=== PATIENT | male | born 1955 | race Caucasian/White ===

== ENCOUNTER 2019-05-04 18:51 | Inpatient (IN) | payer MEDICARE, OTHER ==
[~2019-05-04] VITALS: Ht 175.3 cm; Wt 105.2 kg
[2019-05-04] MEDS ORDERED: LIPITOR10 MG PO (19:39)
[2019-05-04] MEDS ORDERED: LISINOPRIL20 MG PO (19:40)
[2019-05-04] MEDS ORDERED: ZESTORETIC 20-1 EAC1 PO (22:52)
--- NOTE | 2019-05-05 | NUR ---
BP IS ELEVATED AT THIS TIME. PT IS ALSO VERY ANXIOUS AT THIS TIME WHICH ALSO SEEMS TO BE BASELINE FOR HIM. HEAD IS RED AND FLUSHED. PT DENIES HEADACHE. LEFT HAND IS NUMB AND BURNNING. DIGITS ON LEFT HAND ARE BLUE IN COLOR AND COOL TO TOUCH.
--- NOTE | 2019-05-05 00:24 | NUR ---
NITRO GLYCERIN PAST 1 INCH WAS APPLIED ON INDEX AND PINKY FINGER ON LEFT HAND. LAB ON ITS WAY TO DRAW PPT.
--- NOTE | 2019-05-05 01:20 | NUR ---
APPT AT 0030 WAS 41.6. PER MD PRESTON INSTRUCTION, HEPARIN DRIP IS TO BE INCREASED TO 1000UNITS/KG/HR. THIS IS IN HARMONY WITH TITRATION PROTOCOL IN EMAR.
--- NOTE | 2019-05-05 01:54 | NUR ---
RESPONDED TO PT CALL LIGHT. REPORTS INCREASED PAIN AND NUMBNESS IN LEFT FINGERS AND HAND. PRN PAIN MEDICATION GIVEN. PT FACE REMAINS FLUSHED AND SLIGHTLY DIAPHORETIC. ORAL TEMPERATURE OF 99.0. CALL LIGHT WITHN REACH. WILL CONTINUE TO MONITOR
--- NOTE | 2019-05-05 02:08 | NUR ---
PT AT THIS TIME IS COMPLAINING OF INCREASED NUMBNESS IN 5TH AND SECOND DIGIT ON LEFT HAND. ULNAR AND RADIAL PULSES WERE NOTED AND ARE BOTH BOUNDING. WILL CALL MD PRESTON ABOUT NEW FINDINGS.
--- NOTE | 2019-05-05 02:52 | NUR ---
MD PRESTON WAS CALLED DUE TO UPDATE ABOUT PT CONDITION. SINCE LEFT INDEX FINGER IS TURNING MORE CYANOTIC LOOKING AND PT HAS NO FEELING IN IT AT ALL. ORDER WAS GIVEN TO INCREASE HEPARIN DRIP TO 1200 UNITS/KG/HR. WILL CONTINUE TO MONITOR. SUGGESTION WAS MADE TO SHIP PT OUT FOR VASCULAR SX BUT THAT IDEA WAS DISMISSED.
--- NOTE | 2019-05-05 04:30 | NUR ---
AT T HIS TIME INDEX FINGER ON LEFT HAND LOOKS LESS CYANOTIC. PT HOWEVER STILL DOES NOT HAVE ANY FEELING PRESENT. THE SAME IS TRUE FOR LEFT FIFTH PHALANGES. LEFT ULNAR AND RADIAL PULSES ARE PRESENT. PT DENIES SOB, PT IS AAOX4, PEDIS PULSES ARE +2. BP IS STILL ELEVATED SYSTOLICALLY >150. HR IS WDL[place] [address] UNITS/KG/HR. WILL TITRATE NEEDED.
--- NOTE | 2019-05-05 06:19 | NUR ---
APTT AT 0615 WAS 47.2. HEPARIN DRIP WAS INCREASED TO 1400 UNITS/KG/HR. WILL CALL MOHAN WITH UPDATE. FOLLOWED EMAR PROTOCOL SINCE MD DAHL DID NOT EXACTLY OUTLINE NEEDED RATE CHANGES.
--- NOTE | 2019-05-05 06:25 | NUR ---
CALLED MD PRESTON FOR UPDATE. HERPARIN DRIP WAS REDUCED BACK TO 1200 UNITS. IN ADDITION AN ORDER WAS RECEIVED FOR A BOLUS HEPARIN 5000UNITS ONCE.
--- NOTE | 2019-05-05 07:30 | NUR ---
PATIENT SHIFT REPORT RECEIVED FROM RISK MODELER RN. PATIENT RESTING IN BED WITH HIS GIRLFRIEND AT THE BEDSIDE. PER REPORT PATIENT HAS NITRO PASTE TO PINKY AND 2ND DIGIT WHICH HAS IMPROVED COLOR AND CAP REFILL. COLOR IS MORE PINK ON PINKY. THE 2ND DIGIT REMAINS COLD TO THE TOUCH, NO SENSATION, AND VERY SLUGGISH CAP REFIL. PATIENTS HAND APPEARS MOTTLED ON PALM, BUT MORE PINK THAN WHEN ADMITTED PER REPORT.
--- NOTE | 2019-05-05 08:30 | NUR ---
PATIENT SHIFT ASSESSMENT COMPLETED. PATIENTS LEFT HAND EXAMINED. GOOD ULNAR AND RADIAL PULSES PRESENT. PATIENT THUMB IS WARM AND <3 SECONDS CAP REFILL, 2ND DIGIT IS COLD TO THE TOUCH, NO SENSATION, MOTTLED/WHITE IN COLOR, NO COLOR CHANGE FOR CAP REFILL AT THE TIP OF THE FINGER, 8 SECONDS CAP REFILL USP DOWN THE FINGER, 3RD/4TH/5TH DIGIT COOL, CAP REFILL 5 SECONDS, NUMBNESS/TINGLING NOTED, AND PURPLE AT FINGERTIPS. HAND IS <3 SECONDS CAP REFILL. NO IVS/BLOOD PRESSURES ON LEFT EXTREMITY.
--- NOTE | 2019-05-05 08:32 | NUR ---
IN TO COMPLETE PTS INITIAL CASE MANAGEMENT ASSESSMENT. PT REPORTS THAT HE CURRENTLY LIVES IN A [place]. REPORTS HE HAS NO ISSUES THERE AND HE IS SAFE THERE.
--- NOTE | 2019-05-05 09:00 | NUR ---
NEURO ASSESSMENT COMPLETED. NO NEURO DEFICITS NOTED. FACIAL EXPRESSIONS EQUAL, ARM STRENGTH EQUAL BILATERALLY, LEFT HAND ROLL CUTTER IS SLIGHTLY LESS, PATIENT STATES "IT HURTS MY FINGERS WHEN I SQUEEZE, I COULD SQUEEZE HARDER THOUGH", NO PRONATOR DRIFT PRESENT, AND BLE EQUAL. BREATH SOUNDS CLEAR. BOWEL TONES ACTIVE. BREAKFAST ODERED PER MD TO PLACE PATIENT ON REGULAR DIET. NO OTHER NEEDS AT THIS TIME. WILL CONTINUE TO CLOSELY MONITOR.
--- NOTE | 2019-05-05 09:01 | NUR ---
SPOKE WITH JUANITO IN IMAGING AND CT'S CANCELLED. SPOKE WITH RADIOLOGIST AND NEW CRITICAL FINDINGS NOTED ON PREVIOUS CT SCAN. NO NEW ORDERS AT THIS TIME. WILL AWAIT FURTHER ORDERS AND TREATMENTS.
[2019-05-05] MEDS ORDERED: LATANOPROST2.5 ML OU (09:34)
--- NOTE | 2019-05-05 09:34 | NUR ---
MED REC COMPLETE
--- NOTE | 2019-05-05 11:00 | NUR ---
PATIENT SITTING ON EDGE OF BED WITH NO ISSUES. PATIENT IS VISITING WITH GIRLFRIEND. PATIENT DENIES ANY NEEDS AT THIS TIME WILL CONTINUE TO CLOSELY MONITOR.
--- NOTE | 2019-05-05 12:15 | NUR ---
PATIENT RESTING IN BED, TYLENOL GIVEN FOR PRN PAIN. ONCOLOGY RADIATION PHYSICIAN COMPLETED ECHO. NEURO EXAM COMPLETED AND REMAINS UNCHANGED FROM PREVIOUS ASSESSMENT. PAINT STOCKMAN IN TO DRAW APTT WILL FOLLOW-UP REGARDING RESULTS. LUNCH ORDERED. WILL CONTINUE TO CLOSELY MONITOR.
--- NOTE | 2019-05-05 12:16 | NUR ---
patient complaining of throbbing in his index finger. patient requesting tylenol. gve prn tylenol for pain. patient denies any other needs at this time. will continue to closely monitor.
--- NOTE | 2019-05-05 12:58 | NUR ---
ATTEMPTED TO CALL DR PRESTON WITH PTT RESULTS. MESSAGE LEFT.
--- NOTE | 2019-05-05 14:30 | NUR ---
UPDATED MD REGARDING PATIENTS BLOOD PRESSURES AND PATIENT REQUESTING HIS HOME EYE DROPS FOR GLACOMA. MD OKAYED TO START HOME DOSE GLACOMA EYE DROPS AND WILL BE IN TO SEE PATIENT. UPDATED THAT APTT 99 AND NO NEW CHANGES IN MEDICATION. WILL CONTINUE TO CLOSELY MONITOR.
--- NOTE | 2019-05-05 14:30 | NUR ---
PATIENT NITRO PASTE CHANGED ON HIS FINGERS. CALLED AND REQUESTED A REPEAT OF THE ECHO WITH DEFINITIVE CONTRAST. CALLED IMAGING STAFF AND STAFF HAVE ALREADY LEFT FOR THE DAY. UPDATED MD AND SMALL BRAKE FORM OPERATOR. MD REQUESTED US TO CALL STAFF AND SEE IF THEY CAN COME BACK IN TO COMPLETE IMAGING.SMALL BRAKE FORM OPERATOR CALLED STAFF AND LEFT A VOICEMAIL. MD WILL BE IN HERE SHORTLY TO SEE PATIENT AND UPDATE HIM.
--- NOTE | 2019-05-05 14:49 | EKG ---
[facility] [address] [facility] [place], [place] [address] Signed Normal sinus rhythm Normal ECG No previous ECGs available Confirmed by RADHA BRUNO DO ([id number]) on 05/05/2019 2:49:07 PM Electronically Signed By: RADHA BRUNO DO 05/05/19 1449 PATIENT NAME: BARAHONA LYDIA CERVANTES Electrocardiogram DATE OF : 55 PHYSICIAN: RADHA BRUNO DO REPORT #: [id number] REPORT IS CONFIDENTIAL AND NOT TO BE RELEASED WITHOUT AUTHORIZATION
--- NOTE | 2019-05-05 15:54 | NUR ---
STEEL ROD BUSTER IN AND COMPLETED IMAGING WITH NO ISSUES. PATIENT IS RESTING IN BED AT THIS TIME AND DINNER IS ORDERED. PATIENTS GIRLGRIEND REMAINS AT THE BEDSIDE. WILL CONTINUE TO CLOSELY MONITOR.
--- NOTE | 2019-05-05 17:03 | NUR ---
PATIENTS LEFT HAND EXAMINED WHILE CHANGING NITRO PASTE DRESSING. GOOD ULNAR AND RADIAL PULSES PRESENT. PATIENT THUMB IS WARM AND <3 SECONDS CAP REFILL, 2ND DIGIT IS COLD TO THE TOUCH, NO SENSATION, MOTTLED/WHITE IN COLOR, 10 SECONDS OF CAP REFILL NOTED IN TIP OF FINGER, 8 SECONDS CAP REFILL LONGTERM DOWN THE FINGER, 3RD/4TH/5TH DIGIT COOL, CAP REFILL 5 SECONDS, NUMBNESS/TINGLING NOTED, AND PURPLE AT FINGERTIPS. HAND IS <3 SECONDS CAP REFILL. NO IVS/BLOOD PRESSURES ON LEFT EXTREMITY. PATIENT HAD THROBBING AROUND NOON IN 2ND DIGIT, BUT RESOLVED WITH PRN TYLENOL. WILL CONTINUE TO CLOSELY MONITOR. PLACED NEW NITRO PASTE ON FINGERS PER ORDERS.
--- NOTE | 2019-05-05 18:45 | NUR ---
UPDATED MD THAT APTT IS 60.3. PER MD INCREASE HEPARIN GTT TO 1300UNITS/HR. CHANGED GTT AND UPDATED BALLING MACHINE OPERATOR TO CHECK APTT AT MIDNIGHT. WILL CONTINUE TO CLOSELY MONITOR.
--- NOTE | 2019-05-05 18:49 | NUR ---
MD PRESTON IN TO SE PATIENT. MD CONSULTED WITH VASCULAR MD AND UPDATED PATIENT AND FAMILY. PLAN OF CARE TO START PATIENT ON WARFARIN AND CONTINUE TO MONITOR LEFT HAND/FINGERS. LEFT INDEX FINGER APPEARS THE WORSE OF THE FIVE. PATIENT UNDERSTANDS THAT HE MAY LOOSE A DIGIT. CONTINUED NEURO ASSEMENTS REMAIN NEGATIVE THROUGHOUT THE DAY. PATIENT IS AGREEABLE TO PLAN OF CARE. WILL CONTINUE TO CLOSELY MONITOR.
--- NOTE | 2019-05-05 19:06 | HP ---
[facility] [address], [place] [address] Signed ADMISSION DATE: 05/04/2019 REASON FOR ADMISSION: Ischemia of left index and small finger, possible small vessel occlusion, etiology uncertain, possibly embolic. HISTORY OF PRESENT ILLNESS: This 63-year-old white man is accompanied by his significant other girlfriend with complaints of severe left index finger pain and left small finger pain as well as color changes to them both. His symptoms began today and have never been present in the past. He is not known to have Raynaud phenomenon in the past. His evaluation by Dr. Oro showed ischemic changes of the left index finger with a whitish color with mottling as well as some cyanotic changes of the distal segment of the finger with similar findings on the left small finger. I was called and recommended heparinization as well as CT angiogram of the upper extremity to assess for an aneurysmal abnormality to account for embolic phenomenon. The patient is not known to have atrial fibrillation in the past and on EKG has no atrial fibrillation currently. The patient was heparinized with 4000 units of intravenous heparin and began on an 800 unit/hour drip. A CT angiogram was performed, which shows digital artery occlusion on the left index finger and at least one digital artery on the left small finger that may be occluded as well. My review and review of the radiologist shows no sign of vascular abnormality more proximal to that. Unfortunately, the subclavian artery and arch vessels were not visualized on the study. The patient has an episode of having fallen out of his trailer a few weeks ago with pain to his left elbow, but without fracture or dislocation or other problem. Notably, there was no sign of abnormality on the angiogram related to the left elbow area. 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 Electronically Signed By: ALVERTO PRESTON MD 05/05/19 1906 PATIENT NAME: LYDIA BARAHONA SR HISTORY AND PHYSICAL DATE OF : 55 REPORT #: [id number] PHYSICIAN: ALVERTO PRESTON MD PCP: NO PRIMARY CARE PHYSICIAN REPORT IS CONFIDENTIAL AND NOT TO BE RELEASED WITHOUT AUTHORIZATION [facility] [address] [place] [id number] Signed MEDICATIONS: The patient's medications include atorvastatin as well as lisinopril hydrochlorothiazide. The patient has taken his medicines. ALLERGIES: The patient has no known drug allergies. 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 He lives on a pension from that institution as well social security. He travels in his trailer from this place to [facility] his home where his post office box is. REVIEW OF SYSTEMS: He denies any chest pain or shortness of breath. He has had no palpitations. He has no left arm or forearm pain. Pain is restricted to the left index finger and left small finger. He denies any symptoms suggestive of claudication. PHYSICAL EXAMINATION: GENERAL: This is a somewhat obese white man, who does not look toxic, but is somewhat uncomfortable. NECK: His trachea is midline. I detect no carotid bruit. CHEST: Clear. HEART: Regular. I detect no murmur. ABDOMEN: Obese, but soft. There is no palpable aneurysm. MUSCULOSKELETAL: Femoral pulses are 3/3 bilaterally. Upper extremity pulse exam shows brachial pulses 3/3, radial pulses 3/3 bilaterally. Ulnar pulses not detectable by palpation on either side. Dorsalis pedis and posterior pulses are 3/3 bilaterally. SKIN: Examination of the skin itself shows some mottling of the palmar area and clearly ischemic changes of the left index finger and left small finger. There is minimal cyanosis of the distal interphalangeal segments in the index and left small finger. The ring and middle fingers have mild cyanotic changes, but not much. Sensory exam shows "numbness" according to patient of the index and small finger. Sensation is intact to the thumb, middle and ring finger on the left side. The right hand is warm and pink without sign of any abnormality. ASSESSMENT: The patient clearly has ischemic changes to the left index finger and left small finger and angiographic evidence of occlusion of those arteries. The palmar arch and other vessels appear to be patent based on the CT angiogram that has been performed. Most likely, this represents an embolic phenomenon possible etiologic sites would include the subclavian artery with aneurysmal change or the heart itself with paroxysmal atrial fibrillation (less likely). Electronically Signed By: ALVERTO PRESTON MD 05/05/19 1906 PATIENT NAME: LYDIA BARAHONA SR HISTORY AND PHYSICAL DATE OF : 55 REPORT #: [id number] PHYSICIAN: ALVERTO PRESTON MD PCP: NO PRIMARY CARE PHYSICIAN REPORT IS CONFIDENTIAL AND NOT TO BE RELEASED WITHOUT AUTHORIZATION [address] [address] Signed I conferred with a vascular surgeon consulting services manager, Dr. Jefferson, at [facility], who kindly affirmed my plan of systemic heparinization, observation and a plan for visualization of the left subclavian artery and more proximal vessels. Given the dye load he has sustained for his CT angiogram this evening, I think it is best to not repeat the study until tomorrow morning after more hydration. Helpful suggestions have included possible application of topical Nitro paste to the affected fingers, though it is less likely to truly allow for reestablishment of flow of the major arteries, but any collateral flow might be improved. Pain control will be important and of course hydration. The patient does not smoke nor does he have other risk factors for this problem. The possibility of a collagen vascular disease (scleroderma, etc.) is considered and appropriate screening tests would be helpful to obtain as well. There is considered no specific role for thrombolytic therapy acutely at this time, only systemic heparinization to prevent propagation of clot and worsening of the situation. I discussed with the patient and his that loss of the digits is a possibility unfortunately, as his presentation is relatively late considering the clinical findings at hand with and without a mechanical means to provide embolectomy of the arteries so small. We are hopeful and optimistic that it will not come to that. It is notable that the problem is on his nondominant hand. MD ROBSON Segovia/JULES /[id number] cc: Nash Ferrer MD Copies: FACUNDO ORO MD Electronically Signed By: ALVERTO PRESTON MD 05/05/19 1906 PATIENT NAME: LYDIA BARAHONA SR HISTORY AND PHYSICAL DATE OF : 55 REPORT #: [id number] PHYSICIAN: ALVERTO PRESTON MD PCP: NO PRIMARY CARE PHYSICIAN REPORT IS CONFIDENTIAL AND NOT TO BE RELEASED WITHOUT AUTHORIZATION [address] [address] Signed ~ Electronically Signed By: ALVERTO PRESTON MD 05/05/19 1906 PATIENT NAME: LYDIA BARAHONA SR HISTORY AND PHYSICAL DATE OF : 55 REPORT #: [id number] PHYSICIAN: ALVERTO PRESTON MD PCP: NO PRIMARY CARE PHYSICIAN REPORT IS CONFIDENTIAL AND NOT TO BE RELEASED WITHOUT AUTHORIZATION
--- NOTE | 2019-05-05 20:00 | NUR ---
RECEIVED REPROT AT 1900, PT WAS IN ROOM WITH FAMILY AT BEDSIDE. PT OVERALL SEEMS IN GOOD SPIRITS AND PAIN AT THIS TIME IS WELL CONTROLLED. HIS LEFT PALM IS PERFUSING WELL. HIS LEFT INDEX FINGER IS COMPLETELY NUMB ON THE TOP HALF, COOL TO TOUCH WITH A CAP REFILL OF ABOUT 10 SEC. UPPER HALF OF FINGER IS CYANOTIC IN APPEARANCE. LEFT MIDDLE FINGER IS WDL. LEFT RING FINGER IS WDL. LEFT PINKY FINGER IS WDL WITH CAP REFILL, PT HAS VERY MINIMAL NUMBNESS PRESENT AT THIS TIME. NO CYANOSIS NOTED AT THIS TIME. LEFT ULNAR/RADIAL PULSES ARE STILL BOUNDING. PT DENIED ANY OTHER NUMBNESS/TINGLING IN ANY OTHER AREAS. PT IS AAOX4. WILL CONTINUE TO MONITOR.
--- NOTE | 2019-05-05 21:45 | NUR ---
PT AT THIS TIME HAS PAIN 11/23. 1 TAB PERCOCET WAS GIVEN. NO CHANGES NOTED IN LEFT HAND SINCE LAST ASSESSMENT. V/S ARE WDL. NO NEW CONCERNS NOTED.
--- NOTE | 2019-05-05 22:34 | NUR ---
V/S ARE WDL. PT IS SLEEPING AT THIS TIME.
--- NOTE | 2019-05-06 00:15 | NUR ---
V/S ARE WDL, PAIN IS WELL CONTROLLED AT THIS TIME. THE ONLY FINGER ON HIS LEFT HAND BEING A PROBLEM IS HIS INDEX FINGER. THE CAP REFILL AT THIS TIME IS ABOUT 10 SEC +. PT HAS STILL HAS NO FEELING PRESENT IN UPPER HALF OF FINGER. APPEARANCE IS UNCHANGED SINCE START OF SHIFT. WILL CONTINUE TO MONITOR. SECOND ASSESSMENT OTHERWISE UNCHANGED OVERALL.
--- NOTE | 2019-05-06 01:07 | NUR ---
MD PRESTON WAS CALLED WITH 0000 RESULTS OF PTT (53.6). DRIP TO BE INCREASED TO 1500 UNITS AT THIS TIME. WILL REASSESS WITH 0600 LABS.
--- NOTE | 2019-05-06 02:23 | NUR ---
PT AT THIS TIME DENIES PAIN. PT VOIDED AND NOW IS BACK IN BED. NO NEW CONCENS NOTED.
--- NOTE | 2019-05-06 04:15 | NUR ---
URINE OUTPUT THIS SHIFT HAS BEEN MUCH BETTER THAN THE PREVIOUS [place]. LEFT INDEX FINGER IS LESS CYANOTIC AND PT HAS SOME FEELING BACK IN IT WITH THE EXCEPTION OF THE TIP OF THE INDEX FINGER. CAP REFILL IS STILL AROUND 10 SECONDS THOUGH. PT ALSO HAS MORE MOVEMENT IN HIS LEFT INDEX FINGER WELL. PAIN AT THIS TIME IS NO ISSUE. LEFT RADIAL, ULNAR AND BRACHIAL PULSES ARE WDL AT THIS TIME. PT HAS NO OTHER SITES OF NUMBNESS/TINGLING ANYWHERE ELSE AT THIS TIME.
--- NOTE | 2019-05-06 06:21 | NUR ---
PT HAD AN UNEVENFUL NIGHT. AT START OF SHIFT LEFT HAND INDEX FINGER, THE UPPER HALF HAD NO FEELING AT ALL AND WAS VERY CYANOTIC WITH A CAP REFILL OF ABOUT >5 SECONDS OR MORE. OTHER DIGITS WERE OVERALL WDL. THE SECOND ASSESSMENT WAS UNCHANGED FROM THE FIRST. WITH THE THIRD ASSESSMENT, THE LEFT INDEX FINGER REGAINED SOME FEELING STATED BY PT AND THE CYANOSIS DID SUBSIDE SOME. THE UPPER HALF OF HIS INDEX FINGER WAS PALE AND COOL AT THAT TIME. PT ALSO REGAINED MORE MOVEMENT IN THAT FINGER WELL. HEPARIN DRIP WAS INCREASED TO 1500 UNITS AFTER MIDNIGHT DUE TO A APTT OF ONLY 53.6 ORDERED BY MD PRESTON VIA TELEPHONE. PT HAS HAD ELEVATED BP'S MOST OF THIS SHIFT. OTHER V/S WERE WDL. ULNAR/RADIAL/BRACHIAL AND PEDIS PULSES ARE ALL PRESENT +2. PAIN WAS WELL CONTROLLE WITH PRN PERCOCET. URINE OUTPUT WAS ADEQUATE FOR THIS SHIFT. ALL LOBES ARE CLEAR, PT AAOX4.
--- NOTE | 2019-05-06 08:01 | NUR ---
REPORT RECEIVED FROM PV DESIGN AND INSTALLATION TECHNICIAN RN. PT ALERT AND ORIENTED SITTING ON THE SIDE OF THE BED. NITRO REMOVED FROM FINGERS AND CAPILLARY REFILL ASSESED. 0600 APTT STILL PENDING, RE-ORDERED THERE WAS SOME DISCREPANCY WITH LAB. AWAITING RESULTS.
--- NOTE | 2019-05-06 08:39 | NUR ---
DR. PRESTON CALLED TO UPDATE ON aPTT LEVEL WHICH IS 72.7. PATIENT'S HEPARIN GTT TO REMAIN AT 1500 UNITS/HR AND NEXT DRAW WILL BE AT NOON. ORDER REC'D FOR MILK OF MAG FOR CONSTIPATION. NO FURTHER ORDERS. CONTINUE TO MONITOR.
--- NOTE | 2019-05-06 09:24 | NUR ---
PT C/O NAUSEA, BELIEVES IT IS DUE TO THE "ALL THE MEDICATIONS" HE'S BEEN TAKING. PRN NAUSEA MED OFFERED AND PT REFUSED. PT HOPING THE MILK OF MAG WILL HELP HIM HAVE A BM AND THEN HE'LL FEEL BETTER. PT DENIES PAIN IN LEFT HAND/FINGERS, STATES THEY ARE STILL KIND OF NUMB AND TINGLY. INDEX AND SMALLEST FINGER CYANOTIC AT THE TIPS, CAP REFIL >3 SECONDS. HEPARIN INFUSING WITHOUT DIFFICULTY. PT DENIES OTHER NEEDS AT THIS TIME.
--- NOTE | 2019-05-06 10:44 | NUR ---
PRN IV TYLENOL GIVEN FOR C/O HEADACHE AND THROBBING IN PT'S LEFT INDEX FINGER. SON IN ROOM TO VISIT.
--- NOTE | 2019-05-06 11:44 | NUR ---
PT UP TO BR WITH SBA TO VOID 300 ML CLEAR YELLOW URINE. PT SITTING ON THE SIDE OF THE BED VISITING WITH SON. PT STATES PAIN/THROBBING IN THE INDEX FINGER IS IMPROVED AFTER IV TYLENOL. HEADACHE IS GONE. NO C/O NAUSEA. CALL LIGHT IN REACH.
--- NOTE | 2019-05-06 12:38 | NUR ---
NOON APTT REPORTED TO BE 80.2, HEPARIN DRIP CONTIUED AT 1,500 UNITS PER HOUR.
--- NOTE | 2019-05-06 13:00 | NUR ---
PT'S INDEX AND SMALLEST FINGER RE-WRAPPED WITH NITRO PASTE AND GAUZE. CAP REFILL ON TIP OF INDEX FINGER ABOUT 15 SEC, FINGER TIP CYANOTIC. CAP REFILL NEAR SECOND JOINT ABOUT 5 SEC WITH PINK COLOR. THUMB, SECOND, AND THIRD FINGERS CYANOTIC ON THE PADS, CAP REFILL BRISK. SMALLEST FINGER CYANOTIC, CAP REFILL ABOUT 3 SECONDS. PT STATES HE HAS FEELING IN ALL FINGERS. SOME MOTTLING NOTED IN THE PALM AND THUMB. PT DENIES PAIN.
--- NOTE | 2019-05-06 13:45 | NUR ---
PT UP TO BR TO DO OWN SPONGE BATH, MINIMAL ASSISTANCE NEEDED. LOIS WELL. LINENS CHANGED.
--- NOTE | 2019-05-06 15:26 | NUR ---
PT UP TO BR WITH SBA TO VOID 300 ML YELLOW URINE. LOIS WELL. PT DENIES PAIN AT THIS TIME. PT BACK TO BED TO REST FOR A WHILE. CALL LIGHT IN REACH.
--- NOTE | 2019-05-06 18:18 | NUR ---
PT FINISHED DINNER, RESTING IN BED WATCHING TV. VS COMPLETE. PT DENIES PAIN IN LEFT HAND/FINGERS. NITRO WRAP REMAINS IN PLACE ON INDEX AND SMALL FINGER. HEPARIN INFUSING AT 1,500 UNITS/HOUR WITHOUT DIFFICULTY. NO OTHER REQUESTS AT THIS TIME.
--- NOTE | 2019-05-06 18:48 | NUR ---
PRN IV TYLENOL GIVEN FOR C/O 5/10 PAIN IN THE LEFT INDEX AND SMALLEST FINGER. PT STATES THE FINGERS ACHE AND TINGLE. PT SITTING ON OG SIDE OF THE BED AND SAYS THAT HELPS WITH THE PAIN IN HIS HAND. WILL TX TO MEDICAL FLOOR NOW.
--- NOTE | 2019-05-06 19:42 | NUR ---
PT CALLED TO USE RESTROOM, SBA TO RESTROOM AND BACK TO BED. HE DENIES FURTHER NEEDS AND CALL LIGHT IS WITHIN REACH.
--- NOTE | 2019-05-06 20:45 | NUR ---
PT WALKING IN ROOM EARLIER, NO C/O PAIN. L ARM RESTRICTED, L 2ND AND 5TH DIGITS DRESSING DONE. POOR CAPILLARY REFILL, NUMBESS AND TINGLING, WHITE COLORED, COOL TO TOUCH, SLIGHTLY LESS WARM THAN PROXIMAL PHALANGEAL SPACE UP 1ST DISTAL PHALANGEAL AREA. ABLE TO BEND FINGERS. FAINT, PALPABLE PULSES COOPERATIVE WITH ASSESSMENTS. IV HEPARIN INFUSING 1500UNITS. CALL LIGHT AT BEDSIDE, TOLERATING DIET WELL
--- NOTE | 2019-05-07 01:00 | NUR ---
RESTING, NO DISTRESS, ON ROOM AIR, L ARM ELEVATRED WITH PILLOWS, DRESSING IN PLACE 2ND AND 5TH DIGIT. CALL LIGHT AT BEDSIDE
--- NOTE | 2019-05-07 03:07 | NUR ---
C/o h/a, medicated with TYlenol 650mg po. L 5th digit pink, lukewarm to touch, 6 sec cap refill 1+ pitting. pink nail bed. Tingling sensation both and numbness over 2nd digit. 2nd digit digit capillary refill over 10 seconds tip still white and cyanotic/bluish fingernail bed. cold to touch from mid phalange to tip. Nitro paste applied to both. Cooperative. able to bend both fingers. elevagted with pillows, restricted L arm. PTT 91.4, Heparin drip w/o changes. Up to br w minimum of help, voided, back to bed
--- NOTE | 2019-05-07 04:20 | NUR ---
PT CALLED COMPLAINING OF SEVERE PAIN IN HIS FINGER. HE RATED THE PAIN AT "100" AND WAS ROCKING AND SQUIRMING. REMOVED THE BANDAGE TO ASSESS FINGER AND REAPPLY DRESSING. BY THE TIME THE IV MORPHIN WAS ADMINISTERED HE REPORTED PAIN AT AN 8/10. HE IS NOW COMFORTABLE AND DENIES FURTHER NEEDS CALL LIGHT IS WITHIN REACH.
--- NOTE | 2019-05-07 06:56 | NUR ---
PT REPORTS NAUSEA. ADMINISTERED ZOFRAN AND HE DENIES FURTHER NEEDS. CALL LIGHT IS WITHIN REACH.
--- NOTE | 2019-05-07 07:08 | NUR ---
PT SITTING UP IN CHAIR, ALERT AND ORIENTED. PT STATES HE STILL HAS A HEADACHE FROM THE NITRO PASTE BUT THAT IT IS TOLERABLE. CALL LIGHT AND H2O IN REACH. NO OTHER NEEDS OR CONERNS VOICED. LIGHTS DIMMED. BEDSIDE REPORT RECEIVED FROM PAUL SUAREZ.
--- NOTE | 2019-05-07 08:07 | NUR ---
PATIENT SITTING UP IN CHAIR. IN ROOM. PATIENT'S BREAKFAST ORDERED. CALL LIGHT WITHIN REACH. NO OTHER NEEDS AT THIS TIME
--- NOTE | 2019-05-07 08:22 | NUR ---
PT SITTING UP IN CHAIR, ALERT AND ORIETNED CONVERSING WITH FAMILY AT BEDSIDE. ASSESSMENT COMPLETED. CALL LIGHT AND H2O IN REACH. AM MEDS ADMINISTERED. NEW BAG OF HEPARIN HUNG AND CONTINUES TO INFUSE AT PRESCRIBED RATE. NO NEEDS OR CONCERNS VOICED. PT STATES HE HAS REGAINED SOME FEELING TO HIS AFFECTED SMALL AND INDEX FINGERS TO LEFT HAND WHICH CONTINUE TO APPEAR SOMEWHAT CYONOTIC CAP REFILL 3 SECONDS TO LEFT INDEX FINGER AND CAP REFILL 1 SECOND TO SMALL FINGER ON AFFECTED LEFT HAND.
--- NOTE | 2019-05-07 09:40 | NUR ---
PATIENT SITTING UP IN CHAIR. IN ROOM. VITAL SIGNS AND I&O DONE. SETS UP BATHROOM FOR SHOWER. CALL LIGHT WITHIN REACH. NO OTHER NEEDS AT THIS TIME
--- NOTE | 2019-05-07 10:30 | NUR ---
PATIENT SITTING UP IN CHAIR. IV WRAPPED. PATIENT GOES TO THE BATHROOM TO TAKE A SHOWER. CALL LIGHT WITHIN REACH. NO OTHER NEEDS AT THIS TIME
--- NOTE | 2019-05-07 12:36 | NUR ---
IN TO SEE PATIENT. PT SITTING UP IN CHAIR STATES THE FEELING AND CIRCULATION TO HIS FINGERS FEELS LIKE IT CONTINUES TO IMPROVE. HEPARIN DRIP CONTINUES. CALL LIGHT AND H2O IN REACH. PT DNEIES PAIN, SOB OR NAUSEA. PT TOLERATED 100% OF HIS LUNCH. CAP REFILL TIMES REMAIN UNCHANGED TO AFFECTED DIGITS ON LEFT HAND. NO NEEDS OR CONCENRS VOICED.
--- NOTE | 2019-05-07 13:25 | NUR ---
PATIENT RESTING IN BED. VITAL SIGNS AND I&O DONE. CALL LIGHT WITHIN REACH. NO OTHER NEEDS AT THIS TIME
--- NOTE | 2019-05-07 14:05 | NUR ---
PT SITTING UP IN CHAIR WATCHING TV, AT BEDSIDE, CALL LIGHT AND H2O IN REACH. PT ASSESSMENT COMPLETED. PT DENIES NEEDS OR CONCERNS. STATES "I'M FEELING MUTCH BETTER, I FEEL LIKE I'M CLOSE TO GETTING TO GO HOME THE DR THINKS PROBABLY TOMORROW."
--- NOTE | 2019-05-07 17:13 | NUR ---
PATIENT SITTING UP IN CHAIR. IN ROOM. VITAL SIGNS AND I&O DONE. CALL LIGHT WITHIN REACH. NO OTHER NEEDS AT THIS TIME
--- NOTE | 2019-05-07 19:52 | NUR ---
PT ASLEEP IN BED. CHEST RISE AND FALL EVEN AND UNLABORED. FAMILY MEMBER IN ROOM. REPORT RECIEVED FROM KAYLA MILLER IN THE [facility] PT WAS SLEEPING. CALL LIGHT WITHIN REACH.
--- NOTE | 2019-05-07 21:20 | NUR ---
PT ASSESSMENT COMPLETED. CMS INTACT IN LEFT HAND. VSS. IV CLEAN, DRY AND INTACT. PT REPORT NO PAIN AND NO OTHER NEEDS AT THIS TIME. CALL LIGHT WITHIN REACH.
--- NOTE | 2019-05-07 22:46 | NUR ---
CALL LIGHT ANSWERED. URINAL EMPTIED. PT STATES HAD SMALL BM. ICE WATER PROVIDED TO FAMILY. CALL LIGHT IN REACH. NO ADDITIONAL REQUESTS.
--- NOTE | 2019-05-07 23:21 | NUR ---
PT RESTING IN BED, WATHCING TV. FAMILY IN ROOM. PT DENIES ANY NEEDS AT THIS TIME. CALL LIGHT WITHIN REACH.
--- NOTE | 2019-05-08 03:07 | NUR ---
PT AWAKE IN BED, WATCHING TV. PT DENIES ANY PAIN. CMS INTACT IN LEFT HAND/FINGERS WITH SLIGHT CYANOSIS TO THE TIP OF THE INDEX FINGER WHICH IS UNCHANGED FROM THE START OF SHIFT. VSS. ASSESSMENT COMPLETED. FAMILY IN ROOM. NO OTHER NEEDS AT THIS TIME. CALL LIGHT WITHIN REACH.
--- NOTE | 2019-05-08 05:27 | NUR ---
PT HAS SLEPT WELL THIS SHIFT. NO COMPLAINTS OF PAIN. LEFT HAND AND FINGERS APPEAR TO BE IMPROVING IN COLOR AND SENSATION DURING SHIFT. PT INDEPENDENT IN AMBULATION. IV WITH HEPARIN DRIP RIGHT HAND. VSS. AAO X4. REGULAR DIET.
--- NOTE | 2019-05-08 05:58 | NUR ---
PT SLEEPING. AWOKE TO NAME. VSS. PT REPORTS TINGLING IN HAND. CMS INTACT IN LEFT HAND. 2ND AND 5TH DIGITS HAVE CYANOSIS IN TOPS. CAP REFILL <3 SEC. CALL LIGHT IN REACH.
--- NOTE | 2019-05-08 10:08 | NUR ---
PATIENT IN CHAIR, VISITOR IN ROOM. FRESH WATER GIVEN. WANTS TO TAKE SHOWER LATER TODAY. CALL LIGHT IN REACH. NO FURTHER NEEDS AT THIS TIME.
--- NOTE | 2019-05-08 11:05 | NUR ---
pt heparin infusion adjusted per nurse notify to 1300 units per hour.
--- NOTE | 2019-05-08 14:21 | NUR ---
PATIENT IN BED WATCHING TV. FRESH WATER GIVEN. CALL LIGHT IN REACH. NO FURTHER NEEDS AT THIS TIME.
--- NOTE | 2019-05-08 14:53 | NUR ---
PT RESTING IN BED EYES CLOSED. ALERT OT RN IN ROOM. REPORTS NO PAIN AT THIS TIME. HIS LEFT HAND FIRST AND FOURTH FINGERS REMAIN DISCOLORED, WITH SLUGGISH CAP REFILL >3 SECONDS. AND COOLER TO TOUCH THAN SECOND AND THIRD FINGERS BY COMPARISON. HEPARIN DRIP INFUSING AT THIS TIME.
--- NOTE | 2019-05-08 17:49 | NUR ---
PT HAS BEEN UP AMBUALTING INDEPENDENTLY IN ROOM, SHOWERED, HEPARIN TITRATED TO 1300UNITS/HR AFTER LABS THIS AM. CONTINUE TO MONITOR LEFT HAND FIRST AND FOURTH FINGER INTERMITTEN BLUE/PURPLE DISTAL SEGMENT. PT REPORTS NO PAIN TODAY AND INCREAESED RANGE OF MOTION. GOOD APPETITE. ALERT AND ORIENTED.
--- NOTE | 2019-05-08 17:57 | NUR ---
PATIENT IN CHAIR WATCHING TV. FRESH WATER GIVEN. CALL LIGHT IN REACH. NO FURTHER NEEDS AT THIS TIME.
--- NOTE | 2019-05-08 19:52 | NUR ---
PT ASLEEP IN BED. WAKES TO VOICE. SHIFT REPORT RECIEVED FROM SAGAR MILLER. CMS INTACT IN RIGHT HAND WITH CYANOSIS AND TINGLING TO FINGERTIPS. PT DENIES ANY NEES AT THIS TIME. CALL LIGHT IN REACH.
--- NOTE | 2019-05-08 21:55 | NUR ---
PT RESTING IN BED, WATCHING TV. PARTNER AT BEDSIDE. ASSESSMENT COMPLETED. VSS. AAO X4. SCHEDULED EVENING MEDS GIVEN PER EMAR. CMS INTACT IN LEFT HAND. PT USING A PIECE OF FOAM TO EXERCISE HAND. PT INDEPENDENT IN ROOM. CALL LIGHT IN REACH.
--- NOTE | 2019-05-08 22:52 | NUR ---
PATIENT IS RESTING IN BED WATCHING TV. PATIENT DENIES ANY NEEDS. CALL LIGHT IN REACH.
--- NOTE | 2019-05-09 01:28 | NUR ---
PT RESTING IN BED WITH EYES CLOSED. RR 16, EVEN AND UNLABORED. CALL LIGHT IN REACH.
--- NOTE | 2019-05-09 04:06 | NUR ---
PT RESTING ON RIGHT SIDE WITH EYES CLOSED. RR 20, EVEN, UNLABORED. CALL LIGHT IN REACH.
--- NOTE | 2019-05-09 06:11 | NUR ---
PT HAS SLEPT MOST OF THE SHIFT. CMS INTACT IN LEFT HAND. TINGLING IN FINGERTIPS WITH CYANOSIS. CYANOSIS REDUCES WHEN PT UP AND MOVING. LEFT HAND RESTRICTION, REGULAR DIET. TOLERATING WELL. IV SITE RA INFUSING PER ORDER. INDEPENDENT IN ROOM. NO PAIN. RA. AAO X3.
--- NOTE | 2019-05-09 06:25 | NUR ---
PT UP IN CHAIR AFTER LAB DRAW. CMS INTACT IN ALL EXTREMITIES. ASSESSMENT, VS, I & O COMPLETED. AAO X3. LWEFT HAND FINGERS HAVE TINGLING, NO PAIN, DUSKY. PT ORDERING BREAKFAST. NO OTHER NEEDS AT THIS TIME. CALL LIGHT IN REACH.
--- NOTE | 2019-05-09 07:10 | NUR ---
BEDSIDE REPORT.. PT UP IN RECLINER ALERT AND ORIENTED. RIGHT HAND FINGERS FIRST AND FOURTH HAS DISTAL SEGMENT CURRENTLY LIGHT PURPLE TINT. SENSATION INTACT.
--- NOTE | 2019-05-09 07:20 | NUR ---
CALLED TO REPORT LABS
--- NOTE | 2019-05-09 07:54 | NUR ---
PT REPORTS NO APIN AT THIS TIME. BREAKFAST IN ROOM PT REPORTS GOOD APPETITE THIS AM
--- NOTE | 2019-05-09 10:00 | NUR ---
PATIENT IN CHAIR WATCHING TV. FRESH WATER GIVEN. CALL LIGHT IN REACH. NO FURTHER NEEDS AT THIS TIME.
--- NOTE | 2019-05-09 11:00 | NUR ---
SPOKE WITH WASTE DISPOSAL ATTENDANT. PATIENT IS INDEPENDENT IN ROOM. KNOWS OF NO CASE MANAGEMENT NEEDS AT THIS TIME. WILL CONTACT US IF SOMETHING ARISES.
--- NOTE | 2019-05-09 13:00 | NUR ---
PT RESTING IN BED, GIRLFRIEND AT BEDSIDE, PT REPORTS NO PAIN. DISCUSSED CARE PLAN, TREATMENT PLAN AND MEDICATION PLAN.
--- NOTE | 2019-05-09 14:36 | NUR ---
PT VERBALIZED WANTING DISCHARGE TODAY, HE REPORTS NO PAIN.
--- NOTE | 2019-05-09 17:56 | NUR ---
PT HAS BEEN UP IN ROOM AMBULATING INDEPENDENTLY, HE HAS REPORTED NO PAIN OVER SHIFT. ASSESSMENT HAS NOT CHANGED IN LEFT HAND. CONTINUED HEPARIN DRIP AND INCREASED COUMADIN DOSE TODAY. NEW IV SITE ESTABLISHED. GOOD APPETITE AND URINE OUT. WOULD LIKE TO HOLD BOWEL REGIME FOR NOW HE HAS SAAB LOOSE STOOL TODAY AND IS NOT TAKING PAIN MEDICATIONS AT THIS TIME.
--- NOTE | 2019-05-09 19:33 | NUR ---
SHIFT REPORT RECIEVED FROM SAGAR MILLER. PT UP IN CHAIR, WATCHING TV. LEFT HAND CMS INTACT, 2ND AND 5TH FINGERTIPS COOL, CYANOTIC AND TINGLING AT THIS TIME. NO NEEDS AT THIS TIME. CALL LIGHT IN REACH.
--- NOTE | 2019-05-09 21:09 | NUR ---
PT RESTING IN BED WITH EYES CLOSED. WAKES TO VOICE. DENIES PAIN. CMS INTACT IN LEFT HAND. 1ST AND 5TH FINGERTIP CYANOTIC AND COOL. CAP REFILL <3 SEC. ASSESSMENT, VS AND I&O COMPLETED. NO NEEDS AT THIS TIME. CALL LIGHT IN REACH.
--- NOTE | 2019-05-09 23:23 | NUR ---
PT RESTING ON HIS BACK WITH EYES CLOSED. RR 16, EVEN AND UNLABORED. CALL LIGHT IN REACH.
--- NOTE | 2019-05-10 00:55 | NUR ---
PT IS RESTING WITH EYES CLOSED, RESPIRATIONS ARE EVEN AND NONLABORED. CALL LIGHT IS WITHIN REACH. HEPARIN IS INFUSING FINE.
--- NOTE | 2019-05-10 01:45 | NUR ---
PT RESTING IN BED WITH EYES CLOSED. RR16, EVEN AND UNLABORED. CALL LIGHT IN REACH.
--- NOTE | 2019-05-10 03:40 | NUR ---
PT RESTING IN BED WITH EYES CLOSED. RR14, EVEN, UNLABORED. CALL LIGHT IN REACH.
--- NOTE | 2019-05-10 04:52 | NUR ---
PT SLEPT MOST THE SHIFT. L ARM RESTRICTION. IV R FOREARM, CLEAN, DRY, INTACT, NO REDNESS OR SWELLING. REGULAR DIET. INDEPENDENT IN ROOM. CMS INTACT IN LEFT HAND WITH CYANOSIS AND COOLNESS IN THE 2ND AND 5TH DIGIT TIPS. PT USES FOAM CUBE TO EXERCISE LEFT HAND.
--- NOTE | 2019-05-10 05:25 | NUR ---
PT AWAKE. SITTING ON SIDE OF BED. CMS INTACT IN LEFT HAND. 2ND AND 5TH DIGIT TIPS CYANOTIC AND COOLER. CAP REFILL <3SEC. ASSESSMENT, VS, I&O COMPLETED. IV CLEAN, DRY, INTACT. IV INFUSING PER EMAR. CALL LIGHT IN REACH.
--- NOTE | 2019-05-10 07:51 | NUR ---
BEDSIDE REPORT RECIEVED FROM ANNEL MILLER. PT RESTING IN HIS CHAIR STATING HE NOW ONLY HAS SLIGHT "TINGLING" IN HIS FIRST AND FOUTH FINGERS WHICH IS AN IMPORVEMENT. HE DENIES ANY PAIN AND STATES HE HOPES TO GO HOME TODAY.
--- NOTE | 2019-05-10 08:44 | NUR ---
PATIENT NEW TO COUMADIN. HIS GIRLFRIEND HAS BEEN ON IT FOR ABOUT 9 YEARS THOUGH. PROVIDED HIM A HANDOUT THAT EXPLAINS THE HIGH VITAMIN K FOODS, MODERATELY-HIGH VITAMIN K FOODS, AND THE GOAL TO KEEP HIS INTAKE CONSISTENT FROM DAY TO DAY. ALSO PROVIDED REMINDERS ABOUT VITAMIN K IN MVI SUPPLEMENTS AND TO AVOID STARTING ANY HERBAL SUPPLEMENTS WITHOUT TALKING TO HIS DOCTOR. HE SAID HIS GIRLFRIEND WILL HELP KEEP HIM IN LINE. IF HE HAS ANY OTHER QUESTIONS, HE CAN CALL ME.
--- NOTE | 2019-05-10 09:42 | NUR ---
PT RESTING IN HIS CHAIR WATCHING TV. HE ATE 100 % OF HIS BREAKFAST AND HE DENIES ANY NEW PROBLEMS. THE TIPS OF HIS FINGERS ON HIS LEFT HAND CONTINUE TO BE CYANOTIC OF WHICH THE PT STATES WELL THE PRIOR STAFF THAT THEY ARE MUCH LESS SO. LYDIA STATES THIS IS A SLIGHT BIT OF TINGLING AND NO NUMBNESS WHICH IS ALSO A GREAT IMPROVEMENT. HE REAMIANS ON A HEPARIN GTT AT 1400 UNITS AN HOUR ORDERED. LABS DRAWN THIS AM.
--- NOTE | 2019-05-10 10:27 | NUR ---
HEPARIN GTT RATE DECREASED TO 1200 UNITS/HR ORDERED BY DR PRESTON. SEE ORDER UNDER NURSE NOTIFY. PHARMACY WAS NOTIFIED OF THE CHANGE WELL. PT CONTINUES TO DENIE ANY PROBLEMS.
--- NOTE | 2019-05-10 11:20 | NUR ---
PT CONTINUES TO DENIE ANY PROBLEMS AND REMAINS ON HIS HEPARIN GTT VR4559 UNITS AN HOUR.
--- NOTE | 2019-05-10 13:24 | NUR ---
PT CONTINUES TO DENIE ANY SOB OR PAIN. HE STATES THAT THE TIP ON HIS LEFT INDEX FINGER IS TINGLING BUT DENIES ANY OTHER ISSUES, THE FINGER TIPS ON HIS LEFT HAND CONTINUE TO HAVE NOTED CYANOSIS AND ARE COOL TO THE TOUCH. HIS PULSES ARE PRESENT AND THE PT STATES HIS SYMPTOMS ARE IMPROVING. PT REMAINS ON HIS HEPARIN GTT ORDERED. SEE EMAR. COUMADIN DUE LATER TODAY.
--- NOTE | 2019-05-10 17:43 | NUR ---
PT RESTING IN HIS CHAIR AND STATES THAT THE LEFT INDEX FINGER TINGLING CONTINUES TO DECREASE FROM EVEN THIS AM. HE STATES HE IS PLEASED WITH THE PROGRESS THAT HE IS MAKING.
--- NOTE | 2019-05-10 18:26 | NUR ---
Pt states his left index finger is the only place where the tingling remains. He states that this is an impovement even from this AM. The finger tips on the left continue to have noted cyanosis, also which is an improvement. The fingers are cool, pulses strong and equal with the right. Frankie denies any sob, cp or any other pain this shift. Heparin gtt running at 1200 units/hr which was decreased from 1400 units due to ptt of 117 this am. INR 1.8 and he recieved coumadin 10 mg this afternoon. VSS.
--- NOTE | 2019-05-10 19:25 | NUR ---
IN ROOM FOR REPORT, PT IS AWAKE IN THE CHAIR. HEPARIN DRIP IS INFUSING FINE. PT DENIES NEEDS AT THIS TIME. CALL LIGHT IS WITHIN REACH.
--- NOTE | 2019-05-10 20:58 | NUR ---
IN ROOM TO ADMINISTER MEDICATIONS AND ASSESS PT. HE DENIES PAIN AND HAS SOME TINGLING IN HIS LEFT INDEX FINGER. PT IS GLAD TO BE DONE WITH THE NITRO THAT HE PREVIOUSLY HAD ON HIS FINGERS. HE DENIES NEEDS AT THIS TIME. CALL LIGHT IS WITHIN REACH.
--- NOTE | 2019-05-11 01:30 | NUR ---
PT IS RESTING WITH EYES CLOSED, RESPIRATIONS ARE EVEN AND NONLABORED. CALL LIGHT IS WITHIN REACH AND HEPARIN IS INFUSING FINE.
--- NOTE | 2019-05-11 04:45 | NUR ---
PT IS AWAKE IN BED, HE STATES HE WILL GET UP TO THE CHAIR PRETTY SOON. IT IS HIS BIRTHDAY TODAY AND HE WAS HOPING TO SPEND IT ELSEWHERE. ALL FINGERS ON LEFT HAND FEEL WARM TO THE TOUCH WITH THE INDEX FEELING SLIGHTLY COOLER. HE REQUESTED COFFEE AND DENIES FURTHER NEEDS AT THIS TIME. CALL LIGHT IS WITHIN REACH.
--- NOTE | 2019-05-11 05:36 | NUR ---
PT CALLED FOR TYLENOL FOR PAIN. OFIRMEV ADMINISTERED. HE DENIES FURTHER NEEDS AT THIS TIME. CALL LIGHT IS WITHIN REACH. IV IS INFUSING FINE.
--- NOTE | 2019-05-11 07:38 | NUR ---
RECIEVED REPORT FROM SHELLIE, DISCUSSED NO ORDER FOR REPEAT LABS THIS AM. SHE CALLED DR PRESTON AND LABS ORDERED FOR THIS AM. PT IS IN [employer] WATCHING TV, FEELS PAIN IN FINGERS ON L HAND IS A LITTLE BETTER. TODAY IS HIS BIRTHDAY!
--- NOTE | 2019-05-11 09:19 | NUR ---
Patient was awake and eating breakfast. room independent
--- NOTE | 2019-05-11 10:22 | NUR ---
HEPARIN DRIP IS DISCONTINUED.
--- NOTE | 2019-05-11 13:00 | NUR ---
FINGER TIPS ON L HAND ARE WARMER AND COLOR HAS IMROVED. PT DENIES PAIN TODAY IN HAND. GIRLFRIEND IS HERE TO VISIT, ATE 100% OF LUNCH. DOING WELL FOLLOWING W[employer] FOOD RECOMMENDS.
[2019-05-11] MEDS ORDERED: TYLENOL325 MG PO (15:26)
[2019-05-11] MEDS ORDERED: COUMADIN7.5 MG PO (15:27)
--- NOTE | 2019-05-11 16:00 | NUR ---
DR PRESTON IN TO SEE PT, AGREED TO DC HOME THIS AFTERNOON.
--- NOTE | 2019-05-11 17:05 | NUR ---
REVIEWED DISCHARGE INSTRUCTIONS WITH PT AND HIS GIRLFRIEND, VERBALIZES UNDERSTANDING OF FOLLOW UP APPOINTMENT WITH DR PRESTON AND IMPORTANCE OF COUMADIN CLINIC APPOINTMENT. PERSCRIPTION GIVEN TO PT. DENIES ANY CONCERNS OR QUESTIONS. SL DC INTACT. DC AT THIS TIME.
--- NOTE | 2019-05-12 21:38 | DS ---
[facility] [address] [place], [place] [address] Signed ADMISSION DATE: 05/04/2019 DISCHARGE DATE: 05/11/2019 REASON FOR ADMISSION: This 64-year-old white man is accompanied by his significant other girlfriend with complaints of severe left index finger and small finger pain as well as color changes to both of them. He has never had such symptoms in the past. He is not known to have Raynaud phenomenon in the past. He was evaluated by Dr. Schwartz in the emergency room showing ischemic changes of the left index finger with whitish color and mottling as well as some cyanotic changes of the distal segment of the index finger and similar findings of the left small finger. I was called and recommended immediate heparinization as well as CT angiogram of the upper extremity. This was performed showing no sign of aneurysmal area that would account for embolic phenomenon, but subsequently noted to have some thrombus in the region of the origin of the subclavian artery at the arch of the aorta. He is admitted for further evaluation and care. PERTINENT PHYSICAL EXAMINATION: GENERAL: Showed a somewhat obese white man, who did not look toxic or somewhat uncomfortable. NECK: Trachea is midline. He had no carotid bruit. CHEST: Clear. HEART: Regular without murmur. ABDOMEN: Obese, but soft. There is no palpable aneurysm. No femoral aneurysm. PULSES: Normal including the upper extremities though the ulnar pulses were not particularly detectable clinically by me. SKIN: Showed mottling of the palmar area and clearly ischemic change of the left index finger and small finger. There is minimal cyanosis of the distal interphalangeal segments of the index and small finger. The middle and ring fingers have mild cyanotic changes, but not much. SENSORY: Shows "numbness," hence objectively considered decreased sensory exam of the index and small finger. Sensation is intact to the thumb, middle and ring finger on the left side. The right hand is entirely normal. DIAGNOSTIC DATA: CT scan was reviewed confirming no sign of aneurysmal change, but lack of visualization of the digital arteries of the left index finger and one of the arteries absent on the left small finger. Electronically Signed By: ALVERTO PRESTON MD 05/12/19 2138 PATIENT NAME: LYDIA BARAHONA SR DISCHARGE SUMMARY DATE OF : 55 REPORT #: [id number] PHYSICIAN: ALVERTO PRESTON MD PCP: NO PRIMARY CARE PHYSICIAN REPORT IS CONFIDENTIAL AND NOT TO BE RELEASED WITHOUT AUTHORIZATION [facility] [address] [place], [place] [address] Signed HOSPITAL COURSE: The patient was aggressively systemically heparinized and put on a heparin drip. Clinical examination of his hand on an ongoing basis initially showed worsening of his blood flow to the left index finger and small finger and I was quite certain likely he would ultimately have digit loss to some degree. Review of the CT angiogram with Dr. Sharpe, the visiting radiologist, confirmed no evidence of aneurysmal change of the subclavian artery or other areas in the distribution of flow to the left hand. There did appear to be thrombus at the origin of the left subclavian artery. Aggressive evaluation of the left atrium and ventricle was undertaken with echocardiogram, which showed no sign of thrombus of the heart. His heparinization was maintained. I did do a phone consult with Dr. Jefferson in the [facility] in the [facility], who affirmed our approach. He was then given Coumadin. He has a transition plan from systemic heparinization with heparin. It took a few days for his INR to bump up. His initial dose was 7.5, subsequently 10.0. By the day of discharge, his INR is 2.2, his heparin drip has been discontinued. Clinical exam of his fingers show some episodic cyanosis of the distal phalangeal segment of the left index finger and small finger, but with capillary refill and much improvement and no sign of ulceration or progression of ischemia. It is highly probable that he will be spared need for amputation of any of his fingers. It remains mysterious the source of his thrombosis that would initiate embolic phenomenon. It is noted that review of the CT scan shows no significant atherosclerotic change at the origin of the subclavian artery and certainly no aneurysmal change as is sometimes the case. Our plan at this point is continued anticoagulation for at least 6 months with Coumadin. He has been set up for Coumadin Clinic at [facility]. The patient is somewhat nomadic in his area of living, planning for the next few months to be in the [facility] with his trailer and so on. His home base of operations generally is [place], [place]. He does have a primary care physician in [place]. Dr. Kisha Mauro in [place], [place]. DISCHARGE INSTRUCTIONS: He is to keep his hand warm at all times. We headed into cold weather and cold weather could threaten healing to his digits. He will maintain his anticoagulation and follow up with Coumadin Clinic as planned. He will return to see me in approximately a month. DISCHARGE MEDICATIONS: His discharge medications will include: Electronically Signed By: ALVERTO PRESTON MD 05/12/19 2138 PATIENT NAME: LYDIA BARAHONA SR DISCHARGE SUMMARY DATE OF : 55 REPORT #: [id number] PHYSICIAN: ALVERTO PRESTON MD PCP: NO PRIMARY CARE PHYSICIAN REPORT IS CONFIDENTIAL AND NOT TO BE RELEASED WITHOUT AUTHORIZATION [facility] [address] [place], [place] [address] Signed 1. Tylenol 650 mg p.o. q.6 hours p.r.n. pain #30. 2. Coumadin 7.5 mg p.o. daily #30, refill 3. 3. Atorvastatin (Lipitor) 10 mg p.o. at bedtime. 4. Lisinopril/hydrochlorothiazide 20/25 one p.o. daily for hypertension. 5. Latanoprost 2.5 mL drops one drop each eye at bedtime daily. DISCHARGE DIAGNOSES: 1. 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 2. 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 3. Hypertension. 4. Dyslipidemia. MD ROBSON Segovia/MODL /[id number] cc: Kisha Mauro MD Copies: KISHA MAURO MD ~ Electronically Signed By: ALVERTO PRESTON MD 05/12/19 2138 PATIENT NAME: LYDIA BARAHONA SR DISCHARGE SUMMARY DATE OF : 55 REPORT #: [id number] PHYSICIAN: ALVERTO PRESTON MD PCP: NO PRIMARY CARE PHYSICIAN REPORT IS CONFIDENTIAL AND NOT TO BE RELEASED WITHOUT AUTHORIZATION
== END 2019-05-11 17:05 | disposition home or self-care (01) | DRG 300 ==
LOC: ED 18:51 → CCU 23:00 → MS 05-06 18:45
PROVIDERS: ADMIT Surgery
DX: I74.2 Embolism and thrombosis of arteries of the upper extremities (principal); I74.8 Embolism and thrombosis of other arteries; I10 Essential (primary) hypertension; E78.5 Hyperlipidemia, unspecified; E66.9 Obesity, unspecified; Z79.899 Other long term (current) drug therapy; Z85.820 Personal history of malignant melanoma of skin; Z68.34 Body mass index [BMI] 34.0-34.9, adult
CPT/HCPCS: 36415; 70496; 70498; 71046; 73080; 73206; 80048; 80053; 84484; 85025; 85379; 85610; 85730; 85732; 93005; 93010; 93306; 93308; 96361; 96374; 99285-25; J0131; J0690; J1644; J2270; J2405; J7030; Q9957; Q9967